=== PATIENT | male | born 1985 | race Caucasian/White ===

== ENCOUNTER 2017-10-27 17:05 | Emergency (ER) | payer SELFPAY ==
[2017-10-27 18:39] LABS: RAPID GROUP A STREP NEGATIVE (NEGATIVE)
== END 2017-10-27 18:50 | disposition home or self-care (01) ==
LOC: EDH 17:05
DX: J20.9 Acute bronchitis, unspecified (principal); J03.90 Acute tonsillitis, unspecified; Z88.7 Allergy status to serum and vaccine; Z72.0 Tobacco use
CPT/HCPCS: 71046; 87804; 87880

== ENCOUNTER 2018-05-21 09:20 | Emergency (ER) | payer SELFPAY | END 2018-05-21 10:02 | disposition home or self-care (01) | LOC: EDH 09:20 | DX: K02.9 Dental caries, unspecified (principal); Z72.0 Tobacco use; Z88.7 Allergy status to serum and vaccine ==

== ENCOUNTER 2019-07-30 00:59 | Emergency (ER) | payer OTHER ==
[2019-07-30] MEDS ORDERED: SODIUM CHLORIDE 0.9% 1000ML 1,000 ML IV ONE (01:00)
[2019-07-30 02:35] LABS: ABG OXYGEN SATURATION 78.4 % (95.0-99.0); BASE EXCESS,VENOUS BLOOD GAS 0.7 (-2.0-3.0); HCO3,VENOUS BLOOD GAS 26.3 (21.0-28.0); PCO2,VENOUS BLOOD GAS 46 (35-48); PH,VENOUS BLOOD GAS 7.377 (7.350-7.450)
[2019-07-30 02:47] LABS: BASOPHILS % (AUTO) 0.6 % (0.0-5.0); EOSINOPHILS % (AUTO) 1.4 % (0.0-8.0); HEMATOCRIT 42.3 % (42-54); LYMPHOCYTES % (AUTO) 28.3 % (21.0-51.0); MEAN CORPUSCULAR HEMOGLOBIN 27.6 pg (27.0-33.0); MEAN CORPUSCULAR HGB CONC 33.1 g/dL (32.0-36.0); MEAN CORPUSCULAR VOLUME 83.4 fL (79-99); MONOCYTES % (AUTO) 5.7 % (3.0-13.0); NEUTROPHILS % (AUTO) 63.2 % (40.0-77.0); PLATELET COUNT (AUTO) 187 K/uL (130-400); RED BLOOD CELL COUNT(AUTO) 5.07 MIL/uL (4.50-6.20); RED CELL DISTRIBUTION WIDTH 14.6 % (11.0-15.5); WHITE BLOOD COUNT (AUTO) 6.5 K/uL (4.8-10.8)
[2019-07-30 02:48] LABS: APPEARANCE,URINE Clear (CLEAR); BILIRUBIN,URINE Negative (NEGATIVE); COLOR,URINE Yellow (YELLOW); GLUCOSE, URINE (UA) >=1000 mg/dL (NEGATIVE); KETONES,URINE Negative (NEGATIVE); LEUKOCYTE ESTERASE ,URINE Negative (NEGATIVE); NITRATE,URINE Negative (NEGATIVE); OCCULT BLOOD,URINE Negative (NEGATIVE); PROTEIN,URINE Negative (NEGATIVE); UROBILINOGEN,URINE 0.2 mg/dL (0.2-1.0)
[2019-07-30 03:04] LABS: ALBUMIN 4.3 g/dL (3.5-5.0); BILIRUBIN,TOTAL 0.5 mg/dL (0.2-1.0); CREATININE 1.2 mg/dL (0.5-1.5); POTASSIUM 4.2 mmol/L (3.5-5.1); TOTAL PROTEIN, SERUM 8.5 g/dL (6.0-8.3)
[2019-07-30 03:19] LABS: BACTERIA,URINE Rare /HPF (None Seen); RBC,URINE 0-1 /HPF (0-1); SQUAMOUS EPITHELIAL CELL,UR None Seen /HPF (0-2); WBC,URINE 0-1 /HPF (0-1); YEAST,URINE BUDDING Rare /HPF (None Seen)
[2019-07-30] MEDS ORDERED: INSULIN HUMULIN R 100 UNIT/ML 3ML ONE (03:32)
[2019-07-30 03:42] LABS: INR 0.92 (0.85-1.15); PARTIAL THROMBOPLASTIN TIME 25.5 SEC (26.3-35.5)
== END 2019-07-30 05:41 | disposition home or self-care (01) ==
LOC: EDH 00:59
DX: R73.9 Hyperglycemia, unspecified (principal); E86.9 Volume depletion, unspecified; Z88.7 Allergy status to serum and vaccine
CPT/HCPCS: 36415; 36600; 80053; 81001; 82010; 82550; 82803; 82948 ×2; 83605; 83690; 84484; 85025; 85610; 85730; 87088; 93005; 96361; 96374; 99284; J1815; J7030